=== PATIENT | male | born 1950 | race Caucasian/White ===

== ENCOUNTER 2017-10-25 06:21 | Emergency (ER) | payer OTHER, MEDICARE ==
[2017-10-25 07:03] VITALS: BP 144/88; PULSE 66; TEMP 98.4; BMI 31.9
[2017-10-25] MEDS ORDERED: SODIUM CHLORIDE 1,000 ML IV STA (07:16)
[2017-10-25] MEDS ORDERED: ONDANSETRON 4 MG/2 ML VIAL IVPUSH ONE (07:36)
[2017-10-25 07:50] LABS: BASO # 0.1 # (0.1-1); BASO % 1.4 % (0-2.0); EOS # 0.7 # (0-4.5); EOS % 8.3 % (0-4.5); LYMPH # 1.9 (8-40); MCH 28.9 pg (25.7-33.7); MCHC 33.1 g/dl (32.0-35.9); MEAN CELL VOLUME 87.5 fl (80-96); MEAN PLT VOLUME 8.7 fl (7.5-11.1); MONO # 0.7 # (3.8-10.2); NEUT # 5.1 # (42.8-82.8); NEUT % 59.9 % (42.8-82.8); PLATELET COUNT 157 K/MM3 (134-434); RDW 13.6 % (11.9-15.9); WHITE BLOOD COUNT 8.6 K/mm3 (4.0-10.0)
[2017-10-25 08:15] LABS: ANION GAP 7 (8-16); BILIRUBIN,TOTAL 1.4 mg/dL (0.2-1.0); CALCIUM 8.6 mg/dL (8.5-10.1); CO2 28 mmol/L (21-32); GLUCOSE,RANDOM 95 mg/dL (74-106); MAGNESIUM 2.5 mg/dL (1.8-2.4); SGOT/AST 15 U/L (15-37); SGPT/ALT 34 U/L (12-78); TOT PROT 7.5 g/dl (6.4-8.2)
[2017-10-25 08:18] LABS: ALK PHOS 144 U/L (45-117); CPK 55 IU/L (39-308); TROPONIN I < 0.02 ng/ml (0.00-0.05)
--- NOTE | 2017-10-25 09:16 | PDOC ---
History of Present Illness - General Chief Complaint: Lightheaded Stated Complaint: SICK Time Seen by Provider: 10/25/17 07:10 History Source: Patient Exam Limitations: No Limitations - History of Present Illness Initial Comments: 10/25/17 09:13 67-year-old male presents to the ED with complaints of dizziness upon awaking this morning accompanied with generalized fatigue, mild nausea, and upper abdominal pain. Patient denies chest pain, shortness of breath, recent illness, recent travel, recent change in diet, recent sick contacts, recent change in weight. Patient denies GI disorders and states otherwise healthy. Patient he suffers from anxiety and not sure if this is anxiety versus medical emergency. Timing/Duration: 4-6 hours Severity: moderate Associated Symptoms: reports: malaise, nausea/vomiting, weakness Past History - Past Medical History Allergies/Adverse Reactions: Allergies Allergy/AdvReac Type Severity Reaction Status Date / Time No Known Allergies Allergy Verified 10/25/17 07:01 Home Medications: Ambulatory Orders Aspirin Coated [Ecotrin -] 325 mg PO DAILY 07/26/15 Atorvastatin Ca [Lipitor] 20 mg PO HS 07/26/15 Losartan Potassium [Cozaar] 100 mg PO DAILY 07/26/15 Anemia: No Asthma: No Cancer: No Cardiac Disorders: No CVA: No COPD: No CHF: No Dementia: No Diabetes: No GI Disorders: No Disorders: No HTN: Yes Hypercholesterolemia: Yes Liver Disease: No Seizures: No Thyroid Disease: No - Surgical History Abdominal Surgery: No Appendectomy: No Cardiac Surgery: No Cholecystectomy: No Lung Surgery: No Neurologic Surgery: No Orthopedic Surgery: No - Suicide/Smoking/Psychosocial Hx Smoking History: Former smoker Have you smoked in the past 12 months: No If you are a former smoker, when did you quit?: 10 years ago Information on smoking cessation initiated: No Hx Alcohol Use: No Drug/Substance Use Hx: No Substance Use Type: None Hx Substance Use Treatment: No Patient Lives Alone: Yes Lives with/in: lives alone Review of Systems - Review of Systems Able to Perform ROS?: Yes Constitutional: Yes: Malaise, Weakness. No: Unintentional Wgt. Loss HEENTM: No: Symptoms Reported Respiratory: No: Symptoms reported Cardiac (ROS): Yes: Lightheadedness. No: Chest Pain, Chest Tightness ABD/GI: Yes: Nausea, Abdominal cramping Musculoskeletal: No: Symptoms Reported Integumentary: No: Symptoms Reported Neurological: No: Symptoms reported *Physical Exam - Vital Signs Last Vital Signs Temp Pulse Resp BP Pulse Ox 98.4 F 66 18 144/88 100 10/25/17 07:02 10/25/17 07:02 10/25/17 07:02 10/25/17 07:02 10/25/17 07:02 - Physical Exam General Appearance: Yes: Nourished, Appropriately Dressed. No: Apparent Distress HEENT: positive: EOMI, JUAN, Pharynx Normal. negative: Pale Conjunctivae Neck: positive: Supple Respiratory/Chest: positive: Lungs Clear, Normal Breath Sounds. negative: Respiratory Distress, Accessory Muscle Use Cardiovascular: positive: Regular Rhythm, Regular Rate. negative: Murmur Vascular Pulses: Dorsalis-Pedis (R): 2+, Doralis-Pedis (L): 2+ Gastrointestinal/Abdominal: positive: Normal Bowel Sounds, Soft. negative: Distended, Tenderness Extremity: positive: Normal Capillary Refill. negative: Pedal Edema Integumentary: positive: Normal Color, Warm, Moist Neurologic: positive: Normal Mood/Affect, Motor Strength 5/5 Heart Score/ECG Review - History History: Slightly suspicious - Electrocardiogram EKG: Normal - Age Age: >/= 65 - Risk Factors Risk Factors Heart Score: Yes Hx Hypercholesterolemia, Yes Hx Hypertension Based on the list above the patient has:: 1-2 risk factors - Troponin Troponin: </= normal limit - Score Heart Score - Total: 3 - ECG Intrepretation Rhythm: Regular Rhythm (rate 64 normal sinus rhythm. No acute findings) ED Treatment Course - LABORATORY CBC & Chemistry Diagram: 10/25/17 07:37 10/25/17 07:37 - ADDITIONAL ORDERS Additional order review: Laboratory Results 10/25/17 07:37 Sodium 139 Potassium 4.1 Chloride 104 Carbon Dioxide 28 Anion Gap 7 L BUN 16 Creatinine 1.0 Creat Clearance w eGFR > 60 Random Glucose 95 Calcium 8.6 Magnesium 2.5 H Total Bilirubin 1.4 H AST 15 ALT 34 Alkaline Phosphatase 144 H Creatine Kinase 55 Troponin I < 0.02 Total Protein 7.5 Albumin 4.0 Lipase 114 10/25/17 07:37 RBC 5.53 MCV 87.5 MCHC 33.1 RDW 13.6 MPV 8.7 Neutrophils % 59.9 Lymphocytes % 22.4 Monocytes % 8.0 Eosinophils % 8.3 H Basophils % 1.4 - RADIOLOGY Radiology Studies Ordered: Category Date Time Status CHEST X-RAY PORTABLE* [RAD] Stat Radiology 10/25/17 07:14 Completed - Medications Given in the ED: ED Medications Discontinued Medications Generic Name Dose Route Start Last Admin Trade Name René PRN Reason Stop Dose Admin Sodium Chloride 1,000 mls @ 1,000 mls/hr 10/25/17 07:16 10/25/17 07:24 Normal Saline - IV 10/25/17 08:15 1,000 mls/hr ASDIR STA Administration Ondansetron HCl 4 mg 10/25/17 07:36 10/25/17 08:35 Zofran Injection IVPUSH 10/25/17 07:37 Not Given ONCE ONE Medical Decision Making - Medical Decision Making 10/25/17 09:16 Patient with complaints of dizziness, nausea and upper abdominal pain upon weakness morning. Patient had no other complaints or findings on exam. Patient with normal vital signs. Patient ordered for cardiac workup, GI workup along with the urine IV fluids and antiemetics. 10/25/17 10:23 Laboratory Tests 10/25/17 10/25/17 10/25/17 07:37 07:37 09:15 WBC 8.6 Hgb 16.0 Hct 48.4 Plt Count 157 Neutrophils % 59.9 Sodium 139 Potassium 4.1 Chloride 104 Carbon Dioxide 28 Anion Gap 7 L BUN 16 Creatinine 1.0 Random Glucose 95 Calcium 8.6 Magnesium 2.5 H Total Bilirubin 1.4 H AST 15 ALT 34 Alkaline Phosphatase 144 H Creatine Kinase 55 Troponin I < 0.02 Lipase 114 Urine Glucose (UA) Negative Urine Ketones Negative Urine Nitrite Negative Urine Urobilinogen Negative Patient states feeling better. Patient requesting breakfast. Patient given breakfast tray and if continues to improve will discharge home with Zofran. *DC/Admit/Observation/Transfer Diagnosis at time of Disposition: Nausea - Discharge Dispostion Disposition: HOME Condition at time of disposition: Improved - Referrals - Patient Instructions Printed Discharge Instructions: DI for Nausea -- Adult Additional Instructions: Rest, increase your fluids and take Zofran as needed for nausea. Eat bland foods today and may advance as tolerated tomorrow. If symptoms return or worsen please come back to the emergency room. Otherwise follow-up with your primary care physician. - Post Discharge Activity
[2017-10-25 09:31] LABS: URINE APPEARANCE CLEAR; URINE BILIRUBIN NEGATIVE (NEGATIVE); URINE BLOOD NEGATIVE (NEGATIVE); URINE COLOR YELLOW; URINE GLUCOSE (UA) NEGATIVE (NEGATIVE); URINE KETONE NEGATIVE (NEGATIVE); URINE LEUK ESTERASE NEGATIVE (NEGATIVE); URINE NITRITE NEGATIVE (NEGATIVE); URINE PROTEIN NEGATIVE (NEGATIVE); URINE UROBILINOGEN NEGATIVE mg/dL (0.2-1.0)
[2017-10-25 14:47] LABS: URINE LEUK ESTERASE Negative (NEGATIVE)
--- NOTE | 2017-10-25 17:14 | EKG ---
Test Reason : Blood Pressure : / mmHG Vent. Rate : 064 BPM Atrial Rate : 064 BPM P-R Int : 168 ms QRS Dur : 078 ms QT Int : 392 ms P-R-T Axes : 036 014 044 degrees QTc Int : 404 ms NORMAL SINUS RHYTHM SEPTAL INFARCT , AGE UNDETERMINED ABNORMAL ECG NO PREVIOUS ECGS AVAILABLE Confirmed by ANJELICA UGALDE MD ([id number]) on 10/25/2017 5:14:00 PM Referred By: Confirmed By:ANJELICA UGALDE MD
== END 2017-10-25 10:57 | disposition home or self-care (01) ==
LOC: JER 06:21
PROC: 3E0337Z Introduction of Electrolytic and Water Balance Substance into Peripheral Vein, Percutaneous Approach (ICD-10-PCS; principal; 2017-10-25)
DX: R11.0 Nausea (principal); I10 Essential (primary) hypertension; E78.00 Pure hypercholesterolemia, unspecified; Z87.891 Personal history of nicotine dependence
CPT/HCPCS: 36415; 71010-TC; 80053; 81003; 82550; 83690; 83735; 84484; 85025; 87040; 93005; 93010; 99281-25